=== PATIENT | male | born 1985 | race Caucasian/White ===

== ENCOUNTER 2020-11-16 09:32 | Emergency (ER) | payer BC ==
[~2020-11-16] VITALS: Ht 190.5 cm; Wt 122.5 kg
[2020-11-16 12:01] LABS: HEMOGLOBIN 16.1 gm/dl (14.0-17.5); RED BLOOD COUNT 5.08 M/UL (4.20-5.50); WHITE BLOOD COUNT 3.7 K/UL (4.5-11.0)
[2020-11-16 12:23] LABS: BUN/CREATININE RATIO 15 (0-10)
[2020-11-16] MEDS ORDERED: IBUPROFEN800 MG PO (15:11)
== END 2020-11-16 15:18 | disposition home or self-care (01) ==
LOC: ER1 09:32
PROVIDERS: Physician Assistant
DX: U07.1 COVID-19 (principal); J12.82 Pneumonia due to coronavirus disease 2019; Z23 Encounter for immunization
CPT/HCPCS: 71045; 80053; 85025; 99283; M0243

== ENCOUNTER → 2020-12-15 | Outpatient (CLI) | payer BC ==
[~2020-12-15] MED LIST: IBUPROFEN800 MG PO
== END ==
LOC: KOH-I 11-17 15:30
DX: J32.9 Chronic sinusitis, unspecified (principal); J34.1 Cyst and mucocele of nose and nasal sinus
CPT/HCPCS: 70486

== ENCOUNTER → 2021-08-02 | Outpatient (CLI) | payer BC | LOC: KOH-I 14:29 | DX: M54.50 Low back pain, unspecified (principal); R07.81 Pleurodynia; M47.816 Spondylosis without myelopathy or radiculopathy, lumbar region | CPT/HCPCS: 71101; 72100 ==